=== PATIENT | female | born 1965 | race Caucasian/White ===

== ENCOUNTER → 2016-05-31 | Outpatient (CLI) | payer BC ==
[2016-05-31 10:33] LABS: Follicle Stimulating Hormone 40.4 mIU/mL
--- NOTE | 2016-06-01 09:53 | MM ---
Reason for exam: screening (asymptomatic). Last mammogram was performed 1 year and 2 months ago. History: Benign stereotactic core biopsy of the right breast, July 23, 2003. Benign stereotactic core biopsy of the right breast, July 23, 2003. Took hormonal contraceptives for 16 years beginning at age 22. Physical Findings: A clinical breast exam by your physician is recommended on an annual basis and results should be correlated with mammographic findings. MG Screening Mammo w CAD Bilateral CC and MLO view(s) were taken. Prior study comparison: April 04, 2015, bilateral MG screening mammo w CAD. October 16, 2012, bilateral digital screening mammo w/CAD. The breast tissue is heterogeneously dense. This may lower the sensitivity of mammography. Previous mammotome biopsy in the right breast. There is chronic nodularity bilaterally. There is no dominant lesion. No significant changes when compared with prior studies. ASSESSMENT: Benign, BI-RAD 2 RECOMMENDATION: Routine screening mammogram of both breasts in 1 year.
== END | disposition home or self-care (01) ==
LOC: RADMAMWWP 08:05
PROVIDERS: ATTEND Obstetrics & Gynecology
DX: Z12.31 Encounter for screening mammogram for malignant neoplasm of breast (principal); E78.5 Hyperlipidemia, unspecified
CPT/HCPCS: 80061; 83001; 82670; 82947; G0202

== ENCOUNTER → 2017-07-30 | Outpatient (CLI) | payer BC | END | disposition home or self-care (01) | LOC: LABWHC1 09:54 | PROVIDERS: ATTEND Internal Medicine Critical Care Medicine | DX: R05 Cough (principal) | CPT/HCPCS: 36415; 82785; 85008 ==

== ENCOUNTER → 2017-08-13 | Outpatient (CLI) | payer BC ==
--- NOTE | 2017-08-14 09:38 | MM ---
Reason for exam: screening (asymptomatic). Last mammogram was performed 1 year and 2 months ago. History: Benign stereotactic core biopsy of the right breast, July 23, 2003. Benign stereotactic core biopsy of the right breast, July 23, 2003. Took hormonal contraceptives for 16 years beginning at age 22. Physical Findings: A clinical breast exam by your physician is recommended on an annual basis and results should be correlated with mammographic findings. MG Screening Mammo w CAD Bilateral CC and MLO view(s) were taken. Prior study comparison: May 31, 2016, bilateral MG screening mammo w CAD. April 04, 2015, bilateral MG screening mammo w CAD. There are scattered fibroglandular densities. Previous mammotome biopsy in the right breast x 2. There is no discrete abnormality. No significant changes when compared with prior studies. ASSESSMENT: Negative, BI-RAD 1 RECOMMENDATION: Routine screening mammogram of both breasts in 1 year.
== END | disposition home or self-care (01) ==
LOC: RADMAMWWP 10:21
PROVIDERS: ATTEND Obstetrics & Gynecology
DX: Z12.31 Encounter for screening mammogram for malignant neoplasm of breast (principal)
CPT/HCPCS: 77067

== ENCOUNTER 2018-07-04 06:47 | Day surgery (SDC) | payer BC ==
[2018-07-02 08:36] VITALS: BMI 32.5
[~2018-07-04 06:47] MED LIST: LACTATED RINGERS 1,000 ML IV SCH
[2018-07-04 07:20] VITALS: RESP 16; TEMP 97.4
[2018-07-04] MEDS ORDERED: PROPOFOL 10 MG/ML 20 ML VIAL IV ONE (07:45)
--- NOTE | 2018-07-04 07:48 | P.GSHP ---
History of Present Illness H&P Date: 07/04/18 Chief Complaint: Colon cancer screening Patient here today for colonoscopy. She has not had one previously. No bowel related complaints. Past Medical History Past Medical History: Asthma History of Any Multi-Drug Resistant Organisms: None Reported Past Surgical History: Adenoidectomy, Cholecystectomy, Tonsillectomy Past Anesthesia/Blood Transfusion Reactions: No Reported Reaction Smoking Status: Never smoker - Past Family History Sister(s) Family Medical History: Deep Vein Thrombosis (DVT) Medications and Allergies Home Medications Medication Instructions Recorded Confirmed Type Albuterol Inhaler [Ventolin Hfa 1 - 2 puff INHALATION RT-Q6H PRN 07/02/18 History Inhaler] Biotin 600 mcg PO DAILY 07/02/18 07/04/18 History Budesonide/Formoterol Fumarate 2 puff INHALATION BID 07/02/18 07/04/18 History [Symbicort 160-4.5 Mcg Inhaler] Montelukast [Singulair] 10 mg PO HS 07/02/18 07/04/18 History Multivit with Calcium,Iron,Min 1 each PO DAILY 07/02/18 07/04/18 History [Women's Multivitamin] Allergies Allergy/AdvReac Type Severity Reaction Status Date / Time No Known Allergies Allergy Verified 07/02/18 08:33 Surgical - Exam Vital Signs Temp Pulse Resp BP Pulse Ox 97.4 F L 69 16 140/80 97 07/04/18 07:05 07/04/18 07:05 07/04/18 07:05 07/04/18 07:05 07/04/18 07:05 Physical exam: General: Well-developed, well-nourished HEENT: Normocephalic, sclerae nonicteric Abdomen: Nontender, nondistended Extremities: No edema Neuro: Alert and oriented Assessment and Plan (1) Colon cancer screening Narrative/Plan: Will proceed with colonoscopy. Current Visit: Yes Status: Acute Code(s): Z12.11 - ENCOUNTER FOR SCREENING FOR MALIGNANT NEOPLASM OF COLON SNOMED Code(s): 384495573
--- NOTE | 2018-07-04 08:01 | P.PCN ---
Date of Procedure: 07/04/18 Procedure(s) Performed: PREOPERATIVE DIAGNOSIS: Colon cancer screening POSTOPERATIVE DIAGNOSIS: Normal exam PROCEDURE: Colonoscopy ANESTHESIA: MAC SURGEON: Mikey Fierro M.D. SPECIMENS: None ENDOSCOPIC PROCEDURE: The patient was placed on the endoscopy table in the left decubitus position. The Olympus colonoscope was inserted into the anus and passed under direct visualization to the base of the cecum. The appendiceal orifice was visualized. From that point the scope was slowly withdrawn inspecting all surfaces carefully. There were no neoplastic inflammatory or polypoid lesions throughout the cecum, ascending, transverse, descending, sigmoid and rectum. There was no visible diverticulosis noted. Digital rectal examination was normal. The patient was taken to the recovery room in stable condition per anesthesia guidelines. RECOMMENDATIONS: Increase fiber. Follow-up colonoscopy 5 years because of family history.
[2018-07-04 08:34] VITALS: BP 122/74; PULSE 60
--- NOTE | 2018-07-08 12:14 | CDI ---
Date: 07/08/17 CDS/Anesthesiologist Name: Alexia Hernández Phone: If any questions, call [employer] at [phone] Patient Name: Evi Casillas Admit Date: 07/04/18 Discharge Date: 07/04/18 ATTENTION: The [facility] Coding Staff appreciate your assistance in clarifying documentation. Please respond to the clarification below the line at the bottom and electronically sign. The [facility] Coding staff will review the response and follow-up if needed. Please note: Queries are made part of the Legal Health Record. If you have any questions, please contact the High School Science Teacher. Dear Dr. Fierro, Please provide clarification as to what type of family history with regards to the colon. On the operative report under Recommendations: it is stated Follow- up colonoscopy 5 years because of family history. Please clarify. Thank you for your kind consideration. ___ MTDD
== END 2018-07-04 08:53 | disposition home or self-care (01) ==
LOC: ORWHC2ENDO 06:47
PROVIDERS: ATTEND Surgery
DX: Z12.11 Encounter for screening for malignant neoplasm of colon (principal); J45.909 Unspecified asthma, uncomplicated; Z79.51 Long term (current) use of inhaled steroids; Z79.899 Other long term (current) drug therapy
CPT/HCPCS: 81025; J2704; G0105; 45378

== ENCOUNTER → 2018-09-19 | Outpatient (CLI) | payer BC ==
--- NOTE | 2018-09-19 14:31 | MM ---
Reason for exam: screening (asymptomatic). Last mammogram was performed 1 year and 1 month ago. History: Benign stereotactic core biopsy of the right breast, July 23, 2003. Benign stereotactic core biopsy of the right breast, July 23, 2003. Took hormonal contraceptives for 16 years beginning at age 22. Physical Findings: A clinical breast exam by your physician is recommended on an annual basis and results should be correlated with mammographic findings. MG Screening Mammo w CAD Bilateral CC and MLO view(s) were taken. Prior study comparison: August 13, 2017, bilateral MG screening mammo w CAD. May 31, 2016, bilateral MG screening mammo w CAD. The breast tissue is heterogeneously dense. This may lower the sensitivity of mammography. Previous mammotome biopsy in the right breast x 2. There is chronic nodularity in the right breast. There is no discrete abnormality. ASSESSMENT: Benign, BI-RAD 2 RECOMMENDATION: Routine screening mammogram of both breasts in 1 year.
== END | disposition home or self-care (01) ==
LOC: RADMAMWWP 09:14
PROVIDERS: ATTEND Obstetrics & Gynecology
DX: Z12.31 Encounter for screening mammogram for malignant neoplasm of breast (principal)
CPT/HCPCS: 77067

== ENCOUNTER → 2019-04-02 | Outpatient (CLI) | payer BC ==
[2019-04-02 16:55] LABS: Basophils % (A) 1 %; Eosinophils # (A) 0.1 k/uL (0-0.7); Eosinophils % (A) 1 %; HGB 13.7 gm/dL (11.4-16.0); Lymphocytes # (A) 1.8 k/uL (1.0-4.8); Lymphocytes % (A) 32 %; MCH 28.5 pg (25.0-35.0); MCHC 32.7 g/dL (31.0-37.0); MCV 87.2 fL (80.0-100.0); Mean Platelet Volume 6.5; Monocytes # (A) 0.4 k/uL (0-1.0); Monocytes % (A) 8 %; Neutrophils # (A) 3.1 k/uL (1.3-7.7); Neutrophils % (A) 56 %; Platelet Count 274 k/uL (150-450); RBC 4.82 m/uL (3.80-5.40); RDW 12.7 % (11.5-15.5); WBC 5.6 k/uL (3.8-10.6)
== END | disposition home or self-care (01) ==
LOC: LABWHC1 15:31
PROVIDERS: ATTEND Obstetrics & Gynecology
DX: Z01.812 Encounter for preprocedural laboratory examination (principal); Z01.818 Encounter for other preprocedural examination
CPT/HCPCS: 36415; 85025; 93005

== ENCOUNTER 2019-04-15 05:56 | Day surgery (SDC) | payer BC ==
[2019-04-13 11:12] VITALS: BMI 34.3
--- NOTE | 2019-04-14 07:24 | P.HPOB ---
History of Present Illness H&P Date: 04/14/19 Chief Complaint: Post menopausal bleeding This patient is a pleasant 53-year-old 4 para 3 female who presented to my office with complaints of postmenopausal vaginal bleeding. Patient no menstrual cycle since October 2017 and then began bleeding for approximately 2 days in the month of March. Ultrasound showed endometrium to be 8 mm with some small fibroids. Hormonal levels were consistent with menopause. Patient now presents for hysteroscopy D&C for further evaluation. Review of Systems Genitourinary: Reports as per HPI, Reports abnormal vaginal bleeding Menstruation: Reports postmenopausal Past Medical History Past Medical History: Asthma Additional Past Medical History / Comment(s): frequent urination, post menopausal bleeding History of Any Multi-Drug Resistant Organisms: None Reported Past Surgical History: Adenoidectomy, Cholecystectomy, Tonsillectomy Additional Past Surgical History / Comment(s): colonoscopy Past Anesthesia/Blood Transfusion Reactions: No Reported Reaction Smoking Status: Never smoker - Past Family History Sister(s) Family Medical History: Deep Vein Thrombosis (DVT) Medications and Allergies Home Medications Medication Instructions Recorded Confirmed Type Albuterol Inhaler [Ventolin Hfa 1 - 2 puff INHALATION RT-Q6H PRN 07/02/18 04/13/19 History Inhaler] Biotin 600 mcg PO DAILY 07/02/18 04/13/19 History Budesonide/Formoterol Fumarate 2 puff INHALATION BID 07/02/18 04/13/19 History [Symbicort 160-4.5 Mcg Inhaler] Montelukast [Singulair] 10 mg PO HS 07/02/18 04/13/19 History Multivit with Calcium,Iron,Min 1 each PO DAILY 07/02/18 04/13/19 History [Women's Multivitamin] Allergies Allergy/AdvReac Type Severity Reaction Status Date / Time latex Allergy Itching/suyapa Verified 04/13/19 11:13 h Exam - OBG Physical Exam Abdomen: bowel sounds normal, no diffuse tenderness, no bruit present, no guarding noted, no hepatomegaly, no splenomegaly, no mass Vulva: both: normal Vagina: normal moisture, no discharge Cervix: no lesion, no discharge Uterus: normal size, normal contour Adnexa: both: normal Results Transvaginal ultrasound shows the endometrium to be slightly thickened at 8 mm incision and one small fibroid. Assessment and Plan Assessment: This is a pleasant 53-year-old 4 para 3 female with an episode of postmenopausal bleeding and mild endometrial thickening on ultrasound. Plan is hysteroscopy and D&C for further evaluation. Patient understands this surgery and risks including risks of infection, bleeding, possible uterine perforation. All the patient's questions are answered and a written consent is obtained. (1) Post-menopausal bleeding Status: Acute Code(s): N95.0 - POSTMENOPAUSAL BLEEDING SNOMED Code(s): 43920400
[~2019-04-15 05:56] MED LIST changes: -LACTATED RINGERS 1,000 ML IV SCH; +Pre Op ABX Message 1 EACH MISC MISCELLANE ONE
[2019-04-15] MEDS ORDERED: MIDAZOLAM 2 MG/2 ML VIAL IV PRN (06:08)
[2019-04-15] MEDS ORDERED: SCOPOLAMINE 1.5MG/72HR PATCH TRANSDERM ONE (06:08)
[2019-04-15] MEDS ORDERED: HYDROmorphone 0.5 MG/0.5 ML SYRINGE IVP PRN (06:08)
[2019-04-15] MEDS ORDERED: ONDANSETRON 4 MG/2 ML VIAL IVP ONE (06:08)
[2019-04-15] MEDS ORDERED: DEXAMETHASONE SOD PHOSPHATE 10 MG/ML 1 ML VIAL IV ONE (06:08)
[2019-04-15 06:19] VITALS: TEMP 98.1
[2019-04-15] MEDS ORDERED: LIDOCAINE 1% 20 ML VIAL (10MG/ML) FOR IV START INTRADERMA ONE (06:28)
[2019-04-15] MEDS: LACTATED RINGERS 1,000 ML IV SCH ×2 (06:29→06:58)
[2019-04-15] MEDS ORDERED: KETOROLAC 30 MG/ML 1 ML VIAL ONE (06:54)
[2019-04-15] MEDS ORDERED: PROPOFOL 10 MG/ML 20 ML VIAL IV ONE (06:54)
[2019-04-15] MEDS ORDERED: LIDOCAINE 1% INJ 10MG/ML (20 ML MDV) ONE (06:54)
[2019-04-15] MEDS ORDERED: MIDAZOLAM 2 MG/2 ML VIAL ONE (06:54)
[2019-04-15] MEDS ORDERED: fentaNYL (PF) 50 MCG/ML 2 ML AMP ONE (06:54)
--- NOTE | 2019-04-15 07:38 | P.OP ---
Date of Procedure: 04/15/19 Preoperative Diagnosis: Post menopausal bleeding Postoperative Diagnosis: Same Procedure(s) Performed: #1: Hysteroscopy. #2: Dilation and curettage Anesthesia: LISE Surgeon: Andrés Cottrell Estimated Blood Loss (ml): 10 Urine output (ml): 25 Pathology: other (Uterine curettings) Condition: stable Disposition: PACU Indications for Procedure: Please see dictated H&P for intimate details of this patient's admission. Brief summary this is a pleasant 53-year-old multigravida patient who presented to me with complaints of postmenopausal bleeding. Ultrasound showed abnormal endometrial thickening to 8 mm. Patient I elected to proceed with hysteroscopy and D&C for further evaluation and treatment. Patient does understand the surgery and risks including risks of infection, bleeding, possible uterine perforation. All the patient's questions are answered and a written consent is obtained. Operative Findings: This patient had 2 benign appearing polypoid growths. Uterine cavity otherwise appeared normal Description of Procedure: This patient is taken to the operating room where she is laid in the supine position. She subsequent undergoes general anesthesia without incident. With an adequate level of anesthesia she's placed in dorsal lithotomy position. She has a vaginal perineal prep and drape. Examination anesthesia shows a retroverted uterus of normal size. Bladder is drained with a latex free catheter for 25 mL of urine. Weighted speculum was placed in the posterior vagina and the anterior lip of the cervix was grabbed with an Allis clamp. I gently sound the uterus to 7.5 cm. Gentle dilation is then done of the endocervix to allow the hysteroscope easily and the uterine cavity. Using saline solution hysteroscopy is performed. Visualization of the endometrium shows 2 small polypoid growths. These appear benign. The rest the uterine cavity appears normal. Hysteroscope was then removed. I then gently dilate the cervix more to allow a small sharp curette easily uterine cavity. A gentle but thorough 4 quadrant curettage is then done. Also used polyp forceps to remove both of these growths. Final curettage is done for sampling. This completed the Allis clamp and weighted speculum are removed. All counts are correct 3. There are no complications. Patient is awakened from anesthesia and taken recovery room satisfactory condition.
[2019-04-15 08:20] VITALS: RESP 16
[2019-04-15 08:28] VITALS: BP 150/86; PULSE 70
== END 2019-04-15 08:54 | disposition home or self-care (01) ==
LOC: OR 05:56
PROVIDERS: ATTEND Obstetrics & Gynecology
DX: N84.0 Polyp of corpus uteri (principal); N85.4 Malposition of uterus; N95.0 Postmenopausal bleeding; J45.909 Unspecified asthma, uncomplicated; Z91.040 Latex allergy status; Z87.448 Personal history of other diseases of urinary system; Z90.89 Acquired absence of other organs; Z90.49 Acquired absence of other specified parts of digestive tract; Z98.890 Other specified postprocedural states; Z79.899 Other long term (current) drug therapy; Z79.51 Long term (current) use of inhaled steroids; Z82.49 Family history of ischemic heart disease and other diseases of the circulatory system
CPT/HCPCS: 58558; 88305; J2250; J1100; J2405; J2001; J3010; J1885; J2704; J1170

== ENCOUNTER 2019-11-21 12:28 | Emergency (ER) | payer BC ==
[2019-11-21 12:41] VITALS: BP 130/84; PULSE 109; RESP 18; TEMP 98.9
--- NOTE | 2019-11-21 13:13 | ED ---
General Adult HPI - General Chief complaint: Animal Bite Stated complaint: L Leg Cat Bite Time Seen by Provider: 11/21/19 12:35 Source: patient, family, RN notes reviewed, old records reviewed Mode of arrival: ambulatory Limitations: no limitations - History of Present Illness Initial comments: This is a 53-year-old female who presents emergency Department with a cat bite injury to the posterior aspect of her lower left leg. Patient states this occurred 1 AM on Saturday morning she states she went to [facility] and took her first dose of antibiotics last night at 6 PM and a second dose this morning. Patient states the intense redness around the bite got considerably better however there was a little bit of very faint erythema that went outside of the line that was drawn around the redness yesterday and she felt the need to come in and be reevaluated. Patient states he is a little bit of bloody pus coming out on occasion and she has express some pus per patient denies any streaking up the leg. Patient denies any fever. Patient states the pain is very minimal. - Related Data Home Medications Medication Instructions Recorded Confirmed Albuterol Inhaler (Mhu) [Ventolin 1 - 2 puff INHALATION RT-Q6H PRN 07/02/18 04/15/19 Hfa Inhaler] Biotin 600 mcg PO DAILY 07/02/18 04/13/19 Budesonide/Formoterol Fumarate 2 puff INHALATION BID 07/02/18 04/15/19 [Symbicort 160-4.5 Mcg Inhaler] Montelukast [Singulair] 10 mg PO HS 07/02/18 04/15/19 Multivit with Calcium,Iron,Min 1 each PO DAILY 07/02/18 04/13/19 [Women's Multivitamin] Previous Rx's Medication Instructions Recorded Ibuprofen [Motrin] 600 mg PO Q6HR PRN #40 tab 04/15/19 Allergies Allergy/AdvReac Type Severity Reaction Status Date / Time latex Allergy Itching/suyapa Verified 11/21/19 12:41 h Review of Systems ROS Statement: Those systems with pertinent positive or pertinent negative responses have been documented in the HPI. ROS Other: All systems not noted in ROS Statement are negative. Past Medical History Past Medical History: Asthma Additional Past Medical History / Comment(s): frequent urination, post menop ausal bleeding History of Any Multi-Drug Resistant Organisms: None Reported Past Surgical History: Adenoidectomy, Cholecystectomy, Tonsillectomy Additional Past Surgical History / Comment(s): colonoscopy Past Anesthesia/Blood Transfusion Reactions: No Reported Reaction Past Psychological History: No Psychological Hx Reported Smoking Status: Never smoker Past Alcohol Use History: None Reported, Occasional - Past Family History Sister(s) Family Medical History: Deep Vein Thrombosis (DVT) General Exam - General Exam Comments Initial Comments: GENERAL Patient is well-developed and well-nourished. Patient is in mild distress. EYES Patient's pupils are equal and round. Extraocular motion is intact SKIN Unremarkable NEURO The patient is alert and oriented 3 PYSCH Patient has normal interpersonal interactions. MUSCULOSKELETAL There is 2 puncture wounds to the posterior aspect of the patient's left lower leg bloody pus can be expressed but there is no large amount of pus that is coming out. There is a small amount of erythema around the bites and a very faint erythema around that area patient has a pen edita encircling the area. Limitations: no limitations Course Vital Signs 11/21/19 12:36 Temperature 98.9 F Pulse Rate 109 H Respiratory 18 Rate Blood Pressure 130/84 O2 Sat by Pulse 98 Oximetry Medical Decision Making - Medical Decision Making X-ray of the area shows no foreign body. Patient does not want to stay in the hospital I am in agreement with her going home and trying to continue the appropriate antibiotic care at home. Disposition Clinical Impression: Cat bite Disposition: HOME SELF-CARE Instructions (If sedation given, give patient instructions): Animal Bite (ED) Additional Instructions: Continue antibiotics Is patient prescribed a controlled substance at d/c from ED?: No Referrals: Kenton Bunn DO [Primary Care Provider] - 1-2 days Time of Disposition: 13:12
--- NOTE | 2019-11-21 13:44 | XR ---
EXAMINATION TYPE: XR tibia fibula LT DATE OF EXAM: 11/21/2019 COMPARISON: None HISTORY: Foreign body can't by today's prior TECHNIQUE: Single lateral views of the catheter was obtained which includes the entire tibia and fibu la within the [id number]. FINDINGS: Paper clip bucio the site of a catheter bite. No radiopaque foreign bodies are evident. Sof t tissues appear normal. The osseous structures as visualized appear intact. IMPRESSION: 1. Normal lateral tibia and fibula. No radiopaque foreign bodies evident.
== END 2019-11-21 13:30 | disposition home or self-care (01) ==
LOC: EC 12:28
DX: S81.832A Puncture wound without foreign body, left lower leg, initial encounter (principal); J45.909 Unspecified asthma, uncomplicated; Z79.51 Long term (current) use of inhaled steroids; Z91.040 Latex allergy status; W55.01XA Bitten by cat, initial encounter
CPT/HCPCS: 99284

== ENCOUNTER → 2020-09-21 | Outpatient (CLI) | payer BC ==
--- NOTE | 2020-09-21 14:22 | BD ---
EXAMINATION TYPE: Axial Bone Density DATE OF EXAM: 09/21/2020 COMPARISON: NONE CLINICAL HISTORY: Height: 63.5 Weight: 209.0 FRAX RISK QUESTIONS: Alcohol (3 or more units per day): no Family History (Parent hip fracture): no Glucocorticoids (More than 3mos): yes (Ex: prednisone, prednisolone, methylprednisolone, dexamethasone, and hydrocortisone). History of Fracture in Adulthood: yes Secondary Osteoporosis: 1. Type 1 Diabetes: no 2. Hyperthyroidism: no 3. Menopause before 45: no 4. Malnutrition: no 5. Chronic liver disease: no Rheumatoid Arthritis: no Current Tobacco Use: no RISK FACTORS HISTORY OF: Surgery to Spine/Hip(right/left)/Wrist (right/left): no Family History of Osteoporosis: yes Active: yes Diet low in dairy products/other sources of calcium: yes Postmenopausal woman: age 52 Lost more than 2 inches in height since high school: no MEDICATIONS: vitamins Prednisone or other steroids: steroids for asthma How Long: many years Additional History: EXAM MEASUREMENTS: Bone mineral densitometry was performed using the [employer] System. Bone mineral density as measured about the Lumbar spine is: ----- L1-L4(G/cm2): 1.140 T Score Values are as follows: ----- L2: -0.6 ----- L3: -0.2 ----- L4: -0.3 ----- L1-L4: -0.3 Bone mineral density : baseline Bone mineral density about the R hip (g/cm2): 0.945 Bone mineral density about the L hip (g/cm2): 0.919 T Score values are as follows: -----R Neck: -0.98 -----L Neck: -0.9 -----R Total: -0.1 -----L Total: -0.2 Bone mineral density : baseline IMPRESSION: No evidence for osteoporosis or osteopenia. NOTE: T-SCORE=SD OF THE YOUNG ADULT MEAN.
--- NOTE | 2020-09-22 12:32 | MM ---
Reason for exam: screening (asymptomatic). Last mammogram was performed 2 years ago. History: Patient is postmenopausal. Benign stereotactic core biopsy of the right breast, July 23, 2003. Benign stereotactic core biopsy of the right breast, July 23, 2003. Took hormonal contraceptives for 16 years beginning at age 22. Physical Findings: A clinical breast exam by your physician is recommended on an annual basis and results should be correlated with mammographic findings. MG Screening Mammo w CAD Bilateral CC and MLO view(s) were taken. Prior study comparison: September 19, 2018, bilateral MG screening mammo w CAD. August 13, 2017, bilateral MG screening mammo w CAD. The breast tissue is heterogeneously dense. This may lower the sensitivity of mammography. There is no discrete abnormality. No significant changes when compared with prior studies. ASSESSMENT: Negative, BI-RAD 1 RECOMMENDATION: Routine screening mammogram of both breasts in 1 year.
== END | disposition home or self-care (01) ==
LOC: RADMAMWWP 08:45
PROVIDERS: ATTEND Obstetrics & Gynecology
DX: Z12.31 Encounter for screening mammogram for malignant neoplasm of breast (principal); Z13.820 Encounter for screening for osteoporosis; Z78.0 Asymptomatic menopausal state
CPT/HCPCS: 77067; 77080

== ENCOUNTER → 2021-11-02 | Outpatient (CLI) | payer BC ==
--- NOTE | 2021-11-03 08:14 | MM ---
Reason for Exam: Screening (asymptomatic). Last mammogram was performed 1 year(s) and 1 month(s) ago. Patient History: Menarche at age 14. First Full-Term at age 27. Postmenopausal. Hormonal Contraceptives for 16 years from age 22 until age 38. 07/23/2003, Benign Stereotactic Core Biopsy on the right side. 07/23/2003, Benign Stereotactic Core Biopsy on the right side. Risk Values: Gretel 5 year model risk: 1.8%. NCI Lifetime model risk: 13.8%. Prior Study Comparison: 08/13/2017 Bilateral Screening Mammogram, [facility]. 09/19/2018 Bilateral Screening Mammogram, [facility]. 09/21/2020 Bilateral Screening Mammogram, [facility]. Tissue Density: The breast tissue is heterogeneously dense. This may lower the sensitivity of mammography. Findings: Analyzed By CAD. There is no suspicious group of microcalcifications or new suspicious mass in either breast. Overall Assessment: Negative, BI-RAD 1 Management: Screening Mammogram of both breasts in 1 year. A clinical breast exam by your physician is recommended on an annual basis and results should be correlated with mammographic findings. Electronically signed and approved by: Ki Sutton M.D. Radiologis
== END | disposition home or self-care (01) ==
LOC: RADMAMWWP 10:29
PROVIDERS: ATTEND Obstetrics & Gynecology
DX: Z12.31 Encounter for screening mammogram for malignant neoplasm of breast (principal)
CPT/HCPCS: 77067

== ENCOUNTER → 2022-03-30 | Outpatient (CLI) | payer BC ==
[2022-03-30 17:42] LABS: Basophils # (A) 0.03 X 10*3/uL (0.00-0.10); Basophils % (A) 0.5 %; Eosinophils # (A) 0.04 X 10*3/uL (0.04-0.35); Eosinophils % (A) 0.6 %; HCT 41.6 % (37.2-46.3); HGB 13.7 g/dL (12.0-15.0); Immature Grans, Automated 0.3 %; Lymphocytes # (A) 2.19 X 10*3/uL (0.90-5.00); Lymphocytes % (A) 33.7 %; MCHC 32.9 g/dL (32.0-37.0); MCV 85.1 fL (80.0-97.0); Mean Platelet Volume 10.5 fL (9.5-12.2); Monocytes # (A) 0.61 X 10*3/uL (0.20-1.00); Monocytes % (A) 9.4 %; NRBC Per 100 WBC 0 /100 WBCS (0.0-0.0); Neutrophils # (A) 3.61 X 10*3/uL (1.80-7.70); Neutrophils % (A) 55.5 %; Platelet Count 274 X 10*3/uL (140-440); RBC 4.89 X 10*6/uL (4.10-5.20); RDW 13.1 % (11.5-14.5)
== END | disposition home or self-care (01) ==
LOC: LABPAT 12:11
PROVIDERS: ATTEND Obstetrics & Gynecology
DX: Z01.812 Encounter for preprocedural laboratory examination (principal)
CPT/HCPCS: 36415; 85025; 93005

== ENCOUNTER 2022-04-17 06:13 | Day surgery (SDC) | payer BC ==
[2022-04-10 12:16] VITALS: BMI 37.8
--- NOTE | 2022-04-16 12:37 | P.HPOB ---
History of Present Illness H&P Date: 04/16/22 Chief Complaint: Postmenopausal bleeding, endometrial thickening on ultrasound This patient is a pleasant 56 yr female who has been in menopause for several years and began bleeding on March 15. She had a similar episode in 2018 and D&C/pathology was negative. No bleeding since until this February. Ultrasound shows endometrial thickening to 9.5mm. I have advised a hysteroscopy and D&C for further evaluation. Review of Systems Genitourinary: Reports as per HPI, Reports abnormal vaginal bleeding Menstruation: Reports postmenopausal Past Medical History Past Medical History: Asthma, Hypertension Additional Past Medical History / Comment(s): frequent urination, post menopausal bleeding. PT TO SEE PCP TODAY FOR SORE THROAT-INSTRUCTED TO NOTIFY DR. BARAJAS IF PUT ON ANTIBIOTICS, just placed on BP med today History of Any Multi-Drug Resistant Organisms: None Reported Past Surgical History: Adenoidectomy, Cholecystectomy, Tonsillectomy Additional Past Surgical History / Comment(s): colonoscopy, D & C Past Anesthesia/Blood Transfusion Reactions: No Reported Reaction Past Psychological History: No Psychological Hx Reported Smoking Status: Current some day smoker Past Alcohol Use History: Occasional Past Drug Use History: None Reported - Past Family History Sister(s) Family Medical History: Deep Vein Thrombosis (DVT) Medications and Allergies Home Medications Medication Instructions Recorded Confirmed Type Albuterol Inhaler [Ventolin Hfa 1 - 2 puff INHALATION RT-Q6H PRN 07/02/18 04/10/22 History Inhaler] Biotin 600 mcg PO DAILY 07/02/18 04/10/22 History Budesonide/Formoterol Fumarate 2 puff INHALATION BID 07/02/18 04/10/22 History [Symbicort 160-4.5 Mcg Inhaler] Montelukast [Singulair] 10 mg PO HS 07/02/18 04/10/22 History Multivit with Calcium,Iron,Min 1 each PO DAILY 07/02/18 04/10/22 History [Women's Multivitamin] Azithromycin [Zithromax Z Pack] 1 tab PO DIRECTED 04/10/22 04/10/22 History Losartan [Cozaar] 25 mg PO DAILY 04/10/22 04/10/22 History Allergies Allergy/AdvReac Type Severity Reaction Status Date / Time latex Allergy Itching/suyapa Verified 04/10/22 12:06 h Exam - OBG Physical Exam Abdomen: bowel sounds normal, no diffuse tenderness, no bruit present, no guarding noted, no hepatomegaly, no splenomegaly, no mass Vagina: atrophic mucosa Cervix: no lesion, no discharge Uterus: normal size, normal contour Results Transvaginal ultrasound on 03/20 showed endometrium to be 9.5mm Assessment and Plan Assessment: This is a pleasant 56 yr female with postmenopausal bleeding and endometrial thickening on ultrasound. Plan is hysteroscopy and D&C for further evaluation. Evi and I have discussed this surgery and risks: infection, bleeding, possible uterine perforation. All of here questions were answered and a written consent obtained. (1) Endometrial thickening on ultrasound Status: Acute Code(s): R93.89 - ABNORMAL FINDINGS ON DX IMAGING OF OTH BODY STRUCTURES SNOMED Code(s): 465820245 (2) Post-menopausal bleeding Status: Acute Code(s): N95.0 - POSTMENOPAUSAL BLEEDING SNOMED Code(s): 07047681
[2022-04-17] MEDS ORDERED: LACTATED RINGERS 1,000 ML IV SCH (06:36)
[2022-04-17] MEDS ORDERED: ONDANSETRON 4 MG/2 ML VIAL ONE (06:58)
[2022-04-17] MEDS ORDERED: DEXAMETHASONE SOD PHOSPHATE 4 MG/ML 1 ML VIAL IVP ONE (07:02)
[2022-04-17] MEDS ORDERED: MIDAZOLAM 2 MG/2 ML VIAL ONE (07:24)
[2022-04-17] MEDS ORDERED: PROPOFOL 10 MG/ML 20 ML VIAL IV ONE (07:24)
[2022-04-17] MEDS ORDERED: KETOROLAC 15 MG/ML 1 ML VIAL ONE (07:24)
[2022-04-17] MEDS ORDERED: fentaNYL (PF) 50 MCG/ML 2 ML AMP ONE (07:24)
[2022-04-17] MEDS ORDERED: LIDOCAINE 2% INJ 20 MG/ML (2 ML VIAL) ONE (07:24)
--- NOTE | 2022-04-17 08:01 | P.OP ---
Date of Procedure: 04/17/22 Preoperative Diagnosis: #1: Postmenopausal bleeding. #2: Endometrial thickening on ultrasound Postoperative Diagnosis: Same Procedure(s) Performed: #1: Hysteroscopy. #2: Dilation and curettage Anesthesia: other (LMA) Surgeon: Andrés Cottrell Estimated Blood Loss (ml): 10 Urine output (ml): 10 Pathology: other (Uterine curettings) Condition: stable Disposition: PACU Indications for Procedure: Please see dictated H&P for intimate details of this patient's admission. Brief summary this is a pleasant 56-year-old patient who presented to my office with complaints of bleeding since March 15. She not had a period couple years. Transvaginal ultrasound showed endometrial thickening to 9 mm. Patient now presents for hysteroscopy D&C for further evaluation. Patient does understand the surgery and risks and risks of infection, bleeding, possible uterine perforation. All the patient's questions were answered and a written consent is obtained. Operative Findings: This patient had a 5 millimeter appearing benign endometrial polyp or fibroid on the posterior wall and another small 1 on the left upper cornea. The endometrium itself looked atrophic and thin. Description of Procedure: This patient is taken to the operating room where she is laid in the supine position. She subsequently undergoes general anesthesia without incident. With an adequate level of anesthesia she's placed in dorsal lithotomy position. She has a vaginal perineal prep and drape. At this time the bladder is drained for 10 mL of clear urine. A weighted speculum was placed in the posterior vagina. The anterior lip of the cervix was grabbed with an Allis clamp. The cervix is then gently dilated. It is quite stenotic. Uterus sounds to 7 cm. Gentle dilation is then done of the cervix to allow the hysteroscope easily uterine cavity. Hysteroscopy is performed and the entire uterine cavity is visualized. Cavity appears atrophic however there is a 5 mm posterior endometrial growth looks like a polyp or small fibroid. Is also a smaller one the right upper cornea. This done, the hysteroscope was removed. I then dilate the cervix more to allow the polyp forceps into the cavity and this growth is removed. At this point a vigorous 4 quadrant curettage is then done. Adequate sampling is noted. This point the procedure is ended. The Allis clamp and weighted speculum were removed. All counts are correct 3. There are no complications. Patient is awakened from anesthesia and taken recovery room satisfactory condition.
[2022-04-17 08:06] VITALS: RESP 18; TEMP 96.9
[2022-04-17] MEDS ORDERED: LACTATED RINGERS 1,000 ML IV ONE (09:06)
[2022-04-17 09:14] VITALS: BP 122/67; PULSE 79
== END 2022-04-17 09:31 | disposition home or self-care (01) ==
LOC: OR 06:13
PROVIDERS: ATTEND Obstetrics & Gynecology
DX: N84.0 Polyp of corpus uteri (principal); N95.0 Postmenopausal bleeding; R93.89 Abnormal findings on diagnostic imaging of other specified body structures; I10 Essential (primary) hypertension; J45.909 Unspecified asthma, uncomplicated; F17.200 Nicotine dependence, unspecified, uncomplicated; Z79.899 Other long term (current) drug therapy; Z79.51 Long term (current) use of inhaled steroids; Z91.040 Latex allergy status; Z90.49 Acquired absence of other specified parts of digestive tract
CPT/HCPCS: 81025; 58558; J1100; J2405; 88305

== ENCOUNTER → 2023-06-03 | Outpatient (CLI) | payer BC ==
--- NOTE | 2023-06-04 13:03 | MM ---
Reason for Exam: Screening (asymptomatic). Last mammogram was performed 1 year(s) and 7 month(s) ago. Patient History: Menarche at age 14. First Full-Term at age 27. Postmenopausal. Hormonal Contraceptives for 16 years from age 22 until age 38. 07/23/2003, Benign Stereotactic Core Biopsy on the right side. 07/23/2003, Benign Stereotactic Core Biopsy on the right side. Risk Values: Gretel 5 year model risk: 2.0%. NCI Lifetime model risk: 13.3%. Prior Study Comparison: 09/19/2018 Bilateral Screening Mammogram, [facility]. 09/21/2020 Bilateral Screening Mammogram, [facility]. 11/02/2021 Bilateral MG screening mammo w CAD, [facility]. Tissue Density: The breast tissue is almost entirely fat. Findings: Analyzed By CAD. Right breast biopsy clip. There is no suspicious group of microcalcifications or new suspicious mass. Overall Assessment: Benign, BI-RAD 2 Management: Screening Mammogram of both breasts in [address] [facility] will attempt to contact patient to return for supplemental views and ultrasound if indicated. Patient should continue monthly self-breast exams. A clinical breast exam by your physician is recommended on an annual basis. This exam should not preclude additional follow-up of suspicious palpable abnormalities. Note on Gretel scores and lifetime risk: 1. A Gretel score greater than 3% is considered moderate risk. If this is the case, consider specialist referral to assess eligibility for a risk reducing agent. 2. If overall lifetime risk for the development of breast cancer is 20% or higher, the patient may qualify for future screening with alternating mammogram and breast MRI. Electronically signed and approved by: Sonu Tran DO
== END | disposition home or self-care (01) ==
LOC: RADMAMWWP 15:20
PROVIDERS: ATTEND Obstetrics & Gynecology
DX: Z12.31 Encounter for screening mammogram for malignant neoplasm of breast (principal); Z78.0 Asymptomatic menopausal state
CPT/HCPCS: 77067